=== PATIENT | female | born 1965 ===

== ENCOUNTER 2025-06-08 10:17 | Outpatient (AMB) | payer BC, SELFPAY ==
[2025-06-08 10:26] VITALS: BMI 24.1
--- NOTE | 2025-06-08 10:26 | A.SPINEOV_ITS ---
Vital Signs 06/08/25 10:26 Height 5 ft 2 in Weight 132 lb BMI 24.1 Intake Visit Reasons: low back pain Intake Note: Ms. Ro is here today c/o low back pain that radiates to the groin. Portable Machine Sander Required: No Allergies Sulfa (Sulfonamide Antibiotics) Allergy (Severe, Verified 06/08/25 10:27) Rash Physical Exam Vital Signs: BMI result Body Mass Index 24.1 Assessment & Plan Assessment & Plan (1) Lumbar disc herniation: Code(s): M51.26 - Other intervertebral disc displacement, lumbar region Category: Medical Plan Dear Dr Jones, Thank you for referring Mrs Ro to our office today. She is a very nice 59-year-old female with previous history of an L4-5 laminectomy/diskectomy done by Dr. Muñoz in 2013. She did not have a good experience after that procedure, the recovery was extensive and she was laid up for quite awhile. She was doing well until about 6 or 7 months ago when she experienced abrupt onset of left leg pain shooting down into her left lateral leg into her left calf. She has also more recently started having left-sided groin pain. This is superi mposed on chronic back pain. She underwent physical therapy, medication trials including cyclobenzaprine, methocarbamol, Motrin. She also underwent an injection at your office which did help her for a little bit but it was not lasting very long. She comes to us today with an MRI showing a recurrent herniated disc on the left at L4-5 amongst other degenerative changes. PMH: Otherwise healthy, she has a history of resting tremor and back surgery but denies any history of cardiopulmonary disease, liver or kidney problems, bleeding disorders, blood clots, major abdominal surgery, cancer or infections. Social hx: She has not smoke, drink use any recreational drugs Medications: Ibuprofen, methocarbamol, cyclobenzaprine Allergies: Sulfa Physical exam: Awake alert oriented, walks with an antalgic gait, she has some mild weakness of her left ankle which I would rate as 4-5 with lateral eversion. Dorsiflexion is full strength. Reflexes are intact. Positive straight leg raise at 20 degrees. Imaging review: Lumbar MRI done at [facility] in December 2024 shows postsurgical changes at L4-5, she has a large recurrent herniated disc on the left side. Impression: 59-year-old female with a previous history of L4-5 surgery, sounds like she had a diskectomy done with Dr. Muñoz at [facility] in 2013. She had a very difficult time with recovery from that surgery, but ultimately did okay until about 6 or 7 months ago when she reherniated her disc at L4-5 on the left side. She has done conservative management and at this point the pain is getting too intense and persistent that is affecting her quality of life. Dr. Walden and I met with her and offered her a redo left L4-5 microdiskectomy. We scheduled her for 07/26/2025. The patient was given risk and benefits of surgery including but not limited to infection, hematoma, nerve injury, durotomy, weakness, bowel/bladder injury, persistent pain,[ ]. We also discussed the option to continue with conservative treatment and patient wishes to proceed with surgery. They are aware they should stop NSAIDs 7 days prior to surgery. All questions were answered to the best of our ability. If there is anything about this patients medical history that we have overlooked or concerns you have about us proceeding with surgery we would appreciate any input you can offer Thank you for allowing us to care for your patient. The total time spent with this visit with this patient was 45 minutes reviewing history, physical exam, lumbar imaging review, and implementation of treatment plan or further diagnostic testing Lizandro Walden MD,PhD [facility] Coding Level of Care Code New Pt Level 4 (67544) Diagnoses Lumbar disc herniation M51.26
--- OUTSIDE RECORDS SUMMARY | 2025-06-08 11:08 | XMS_ITS | Encounter Summary ---
Author Organization [facility] Address [address] [place] [address] Phone Care Team Providers Care Change Agent Name Role Phone Sancho Duran MD Primary Care Provider Encounter Details Date Type Department Care Team (Late st Contact Info) Description 11/15/2018 Procedure [facility] [address] [place] [address] Social History Tobacco Use Types Packs/Day Years Used Date Smoking Tobacco: Never Assessed Comments Unknown Sex and Gender Information Value Date Recorded Sex Assigned at Not on file Legal Sex Female 5:12 PM EST Gender Identity Not on file Sexual Orientation Not on file documented as of this encounter Functional Status documented as of this encounter Plan of Treatment Not on file documented as of this encounter Visit Diagnoses Not on filedocumented in this encounter Care Teams Change Agent Relationship Specialty Start Date End Date Sancho Duran MD [address] [place] [phone] PCP - General Family Medicine 10/28/18 documented as of this encounter Additional Source Comments The information contained in this document represents components of the legal health record. It is not the complete legal health record.[facility]
--- OUTSIDE RECORDS SUMMARY | 2025-06-08 11:08 | XMS_ITS | Clinical Summary ---
Author Organization [facility] Address [address] [place] [address] Phone Care Team Providers Care Supervisor Polishing Name Role Phone Sancho Duran MD Primary Care Provider Allergies Active Allergy Reactions Criticality Noted Date Comments Sulfa (Sulfonamide Antibiotics) 11/04 Rash Medications propranolol (INDERAL) 80 MG immediate release tablet Take 80 mg by mouth daily. Active cyclobenzaprine (FLEXERIL) 10 MG tabletIndicatio ns:prn Take 10 mg by mouth 3 (three) times a day as needed for muscle spasms. Indications: prn Active cholecalciferol (VITAMIN D3) 5,000 unit tablet Take 1,000 Units by mouth daily. Active calcium carbonate (CALCIUM 600 ORAL)Indication s:sometimes take 2 tab Take by mouth. Indications: sometimes take 2 tab Active ibuprofen (ADVIL,MOTRIN) 600 MG tabletIndicatio ns:prn Take 600 mg by mouth every 6 (six) hours as needed for pain (specific location in comments). Indications: prn Active naproxen sodium (ALEVE) 220 MG tablet Take 220 mg by mouth 2 (two) times a day with meals. Active Active Problems Problem Noted Date Diagnosed Date Lumbar radiculopathy 11/29/2018 Social History Tobacco Use Types Packs/Day Years Used Date Smoking Tobacco: Never Smokeless Tobacco: Never Alcohol Use Standard Drinks/Week Comments Never 0 (1 standard drink = 0.6 oz pur e alcohol) Education Answer Date Recorded Are you interested in more education? Not on jenifer e 01/03/2023 Are you concerned about learning? Not on file 01/03/2023 No 01/03/2023 No 01/03/2023 Digital Access Answer Date Recorded No 01/26/2023 No 01/26/2023 No 01/26/2023 Reliable internet access at home? Not on file 01/26/2023 Device with a working camera? Not on file Comments Unknown Sex and Gender Information Value Date Recorded Sex Assigned at Not on file Legal Sex Female 5:12 PM EST Gender Identity Not on file Sexual Orientation Not on file Last Filed Vital Signs Vital Sign Reading Time Taken Comments Blood Pressure 107/75 01/16/2019 10:42 AM EDT Pulse 81 01/16/2019 10:42 AM EDT Temperature - - Respiratory Rate - - Oxygen Saturation 99% 01/16/2019 10:42 AM EDT Inhaled Oxygen Concentration - - Weight 58.5 kg (129 lb) 11/15/2018 12:41 PM EDT verbal Height 157.5 cm (5' 2 ) 11/15/2018 12:41 PM EDT verbal Body Mass Index 23.59 11/15/2018 12:41 PM EDT Plan of Treatment Health Maintenance Due Date Last Done Comments Adult Td,Tdap Booster 1964 LIPID PANEL 1964 DEPRESSION SCREENING 1976 HEPATITIS C SCREENING 1982 HIV ONE-TIME SCREENING (18-6 5 YEARS) 1982 PAP SMEAR 1985 MAMMOGRAM 2004 COLOGUARD 2009 COLONOSCOPY 2009 COLORECTAL CANCER SCREENING 2009 FIT TEST 2009 FOBT 2009 SIGMOIDOSCOPY 2009 VIRTUAL COLONOSCOPY 2009 PNEUMOCOCCAL VACCINES (50+ years) (1 of 1 - PCV) 2014 ZOSTER VACCINES (1 of 2) 2014 INFLUENZA VACCINE (#1) 2025 7, 05/26/2016 COVID-19 VACCINE (2 - 2024-2 6 season) 2025 12/06/2020 RSV VACCINE (1 - 1-dose 75+ series) 2039 SMOKING STATUS SCREENING (On ce After 26 Yrs) Completed 01/16/2019 HEPATITIS A VACCINES Aged Out No long er eligible based on patient's age to complete this topic HIB VACCINES Aged Out No longer eligi ble based on patient's age to complete this topic MENINGOCOCCAL VACCINES (ACWY) Aged Out No longer eligible based on patient's age to complete this topic MENINGOCOCCAL VACCINES (B) Aged Out N o longer eligible based on patient's age to complete this topic Medical Devices Not on file Insurance POS POS POS POS POS POS POS POS POS Care Teams Supervisor Polishing Relationship Specialty Start Date End Date Sancho Duran MD [address] [place] [phone] PCP - General Family Medicine 10/28/18 Additional Source Comments The information contained in this document represents components of the legal health record. It is not the complete legal health record.[facility]
--- OUTSIDE RECORDS SUMMARY | 2025-06-08 11:08 | XMS_ITS | Encounter Summary ---
Author Organization [facility] Address [address] [place] [address] Phone Care Team Providers Care Brick Chimney Builder Name Role Phone Sancho Duran MD Primary Care Provider Encounter Details Date Type Department Care Team (Late st Contact Info) Description 12/15/2018 Ancillary Orders Pain Management Services [address] [place] [address] Ambrosio Diaz MD [address] [place] [address] [email or web address] Pain Social History Tobacco Use Types Packs/Day Years Used Date Smoking Tobacco: Never Smokeless Tobacco: Never Alcohol Use Standard Drinks/Week Comments Never 0 (1 standard drink = 0.6 oz pur e alcohol) Comments Unknown Sex and Gender Information Value Date Recorded Sex Assigned at Not on file Legal Sex Female 5:12 PM EST Gender Identity Not on file Sexual Orientation Not on file documented as of this encounter Plan of Treatment Not on file documented as of this encounter Results * [place] Pain [facility] (12/15/2018 11:39 AM EDT) Narrative [facility] INTERFACES - 12/15/2018 11:39 AM EDT Fluoroscopy was provided during this procedure. us Ambrosio Diaz MD IMG [place] EXAMS Final Result [facility] documented in this encounter Visit Diagnoses Diagnosis Pain Generalized pain Pain Generalized pain documented in this encounter Care Teams Brick Chimney Builder Relationship Specialty Start Date End Date Sancho Duran MD [address] [place] [phone] PCP - General Family Medicine 10/28/18 documented as of this encounter Additional Source Comments The information contained in this document represents components of the legal health record. It is not the complete legal health record.[facility]
--- OUTSIDE RECORDS SUMMARY | 2025-06-08 11:08 | XMS_ITS | Encounter Summary ---
Author Organization [facility] Address [address] [place] [address] Phone Care Team Providers Care Forest Logistics Manager Name Role Phone Sancho Duran MD Primary Care Provider Encounter Details Date Type Department Care Team (Late st Contact Info) Description 11/15/2018 Procedure [facility] Imaging [address] [place] [address] Social History Tobacco Use Types Packs/Day Years [...] on filedocumented in this encounter Care Teams Forest Logistics Manager Relationship Specialty Start Date End Date Sancho Duran MD [address] [place] [phone] PCP - General Family Medicine 10/28/18 documented as of this encounter Additional Source Comments The information contained in this document represents components of the legal health record. It is not the complete legal health record.[facility]
--- OUTSIDE RECORDS SUMMARY | 2025-06-08 11:08 | XMS_ITS | Encounter Summary ---
Author Organization [facility] Address [address] [place] [address] Care Team Providers Care Pet Handler Name Role Phone Mikala Brower CORRUGATOR MACHINE OPERATOR Primary Care Provider Encounter Details Date Type Department Care Team (Late st Contact Info) Description 05/29/2024 Orders Only [facility] Lab [address] [place] [address] Mikala Brower, CORRUGATOR MACHINE OPERATOR [address] [facility] [address] [place] [phone] Hyperlipidemia, unspecified hyperlipidemia type (Primary Dx); Iron deficiency anemia, unspecified iron deficiency anemia type; Vitamin D deficiency Social History Tobacco Use Types Packs/Day Years Used Date Smoking Tobacco: Never Smokeless Tobacco: Never Alcohol Use Standard Drinks/Week Comments Not Currently 0 (1 standard drink = 0.6 oz pur e alcohol) Comments No Sex and Gender Information Value Date Recorded Sex Assigned at Female 10/14/2023 3:15 PM EST Legal Sex Female 4:38 AM EDT Gender Identity Not on file Sexual Orientation Not on file documented as of this encounter Plan of Treatment Upcoming Encounters Date Type Department Care Team (Late st Contact Info) Description 03/29/2026 12:00 PM EDT Appointment [facility] Ultrasound [address] [place] [address] 04/12/2026 1:30 PM EDT Follow-Up [facility] [address] [place] [phone] Last Putter Away: Francesca Dubon PA [address] [place] [address] documented as of this encounter Results * Due to [place] state law, this organization might not be sharing negative HIV tests. * Vitamin D, 25-Hydroxy, Total, Immunoassay (06/02/2024 11:21 AM EDT) Vitamin D 25-OH 55.80 30.00 - 80.00 ng/mL 06/05/2024 4:36 PM EDT [facility] Blood Structure of peripheral vein / Unknown Venipuncture / Unknown 06/02/2024 11:21 AM EDT 06/02/2024 11:21 AM EDT us Mikala Brower NP LAB BLOOD ORDERABLES Final Res ult Performing Organization Address City/[facility]/ZIP Co de Phone Number [facility] [address] [place] [address], [place] [phone] * Vitamin B12 (06/02/2024 11:21 AM EDT) Pathologist [facility] Vitamin B12 269 232 - 1,245 pg/mL 06/02/2024 2:47 PM EDT [facility] Blood Structure of peripheral vein / Unknown Venipuncture / Unknown 06/02/2024 11:21 AM EDT 06/02/2024 11:21 AM EDT Mikala Brower CORRUGATOR MACHINE OPERATOR LAB BLOOD ORDERABLES Final Res ult [facility] [address] [address], [place] [phone] * (ABNORMAL) CBC Auto Differential (06/02/2024 11:21 AM EDT) WBC 5.8 4.8 - 10.8 10*3/uL 06/02/2024 2:24 PM EDT [facility] RBC 4.69 4.20 - 5.40 10*6/uL 06/02/2024 2:24 PM EDT [facility] Hemoglobin 13.0 11.7 - 15.5 g/dL 06/02/2024 2:24 PM EDT [facility] Hematocrit 39.1 35.7 - 45.8 % 06/02/2024 2:24 PM EDT [facility] MCV 83.4 81.0 - 99.0 fL 06/02/2024 2:24 PM EDT [facility] MCH 27.7 26.0 - 34.0 pg 06/02/2024 2:24 PM EDT [facility] MCHC 33.2 31.0 - 36.0 g/dL 06/02/2024 2:24 PM EDT [facility] RDW 12.8 12.0 - 15.0 % 06/02/2024 2:24 PM EDT [facility] RDW Standard Deviation 38.7 36.4 - 46.3 fL 06/02/2024 2:24 PM EDT [facility] Platelets 231 140 - 440 10*3/uL 06/02/2024 2:24 PM EDT [facility] MPV 11.4 9.4 - 12.3 fL 06/02/2024 2:24 PM EDT [facility] Neutrophil % 47.8(L) 50.0 - 75.0 % 06/02/2024 2:24 PM EDT [facility] Immature Grans % 0.2 0.0 - 0.9 % 06/02/2024 2:24 PM EDT [facility] Lymphocyte % 41.4 20.0 - 44.0 % 06/02/2024 2:24 PM EDT [facility] Monocyte % 8.3 0.0 - 14.0 % 06/02/2024 2:24 PM EDT [facility] Eosinophil % 1.4 0.0 - 5.0 % 06/02/2024 2:24 PM EDT [facility] Basophil % 0.9 0.0 - 2.0 % 06/02/2024 2:24 PM EDT [facility] Neutrophil # 2.76 1.80 - 7.70 10*3/uL 06/02/2024 2:24 PM EDT [facility] Immature Grans # <0.03 0.00 - 0.03 10*3/uL 06/02/2024 2:24 PM EDT [facility] Lymphocyte # 2.40 1.00 - 4.75 10*3/uL 06/02/2024 2:24 PM EDT [facility] Monocyte # 0.50 0.00 - 6.00 10*3/uL 06/02/2024 2:24 PM EDT [facility] Eosinophil # 0.10 0.00 - 0.80 10*3/uL 06/02/2024 2:24 PM EDT [facility] Basophil # 0.10 0.00 - 0.20 10*3/uL 06/02/2024 2:24 PM EDT [facility] nRBC % 0.0 0 - 0 /100 WBCs 06/02/2024 2:24 PM EDT [facility] nRBC # <0.01 0.00 - 0.13 10*3/uL 06/02/2024 2:24 PM EDT [facility] Blood Structure of peripheral vein / Unknown Venipuncture / Unknown 06/02/2024 11:21 AM EDT 06/02/2024 11:21 AM EDT us Mikala Brower NP LAB BLOOD ORDERABLES Final Res ult [facility] [address] [place] [address], * Comprehensive Metabolic Panel (06/02/2024 11:21 AM EDT) NA 143 136 - 145 mmol/L 06/02/2024 2:47 PM EDT [facility] K 4.6 3.5 - 5.1 mmol/L 06/02/2024 2:47 PM EDT [facility] Cl 108 98 - 109 mmol/L 06/02/2024 2:47 PM EDT [facility] CO2 24 22 - 32 mmol/L 06/02/2024 2:47 PM EDT [facility] Anion Gap 16 >=0 06/02/2024 2:47 PM EDT [facility] Glucose 96 60 - 99 mg/dL 06/02/2024 2:47 PM EDT [facility] Creatinine 0.71 0.50 - 1.12 mg/dL 06/02/2024 2:47 PM EDT [facility] Calcium 9.6 8.4 - 10.4 mg/dL 06/02/2024 2:47 PM EDT [facility] Total Protein 7.1 6.6 - 8.7 g/dL 06/02/2024 2:47 PM EDT [facility] Albumin 4.3 3.5 - 5.0 g/dL 06/02/2024 2:47 PM EDT [facility] Bilirubin, Total 0.3 0.2 - 1.2 mg/dL 06/02/2024 2:47 PM EDT [facility] Alkaline Phosphatase 62 40 - 129 U/L 06/02/2024 2:47 PM EDT [facility] AST 24 0 - 33 U/L 06/02/2024 2:47 PM EDT [facility] ALT 31 <=33 U/L 06/02/2024 2:47 PM EDT [facility] BUN 14 6 - 20 mg/dL 06/02/2024 2:47 PM EDT [facility] eGFR >90 >=60 mL/min/1. 73m2 06/02/2024 2:47 PM EDT [facility] Comment:The estimated glomer ular filtration rate (eGFR) is calculated using a new formula developed by the NKF-ASN task force to eliminate race-based correction factors. The new formula uses serum/plasma creatinine, age, and gender to determine eGFR. A value below 60mls/min might indicate kidney disease and will be flagged. For additional information, see Juan et al, Am J Kidney Dis. 2021;79(2):268- 288, A Unifying Approach for GFR estimation: Recommendations of the NKF-ASN Task Force on Reassessing the Inclusion of Race in Diagnosing Kidney Disease . Globulin, Total 2.8 2.1 - 4.2 g/dL 06/02/2024 2:47 PM EDT [facility] A/G Ratio 1.5 1.5 - 3.0 06/02/2024 2:47 PM EDT [facility] Blood Structure of peripheral vein / Unknown Venipuncture / Unknown 06/02/2024 11:21 AM EDT 06/02/2024 11:21 AM EDT us Mikala Brower CORRUGATOR MACHINE OPERATOR LAB BLOOD ORDERABLES Final Res ult Performing Organization Address City/State/[facility] Co de Phone Number [facility] [address] [place] [phone], * Lipid panel (06/02/2024 11:21 AM EDT) Cholesterol 232 mg/dL 06/02/2024 2:47 PM EDT [facility] Comment: DESIRABLE: <200 mg/dL BORDERLINE HIGH: 200-239 mg/dL HIGH: >239 mg/dL Triglycerides 194 mg/dL 06/02/2024 2:47 PM EDT [facility] Comment: NORMAL: <150 mg/dL BORDERLINE HIGH: 150-199 mg/dL HIGH: 200-499 mg/dL VERY HIGH >499 mg/dL Cholesterol, HDL 48 mg/dL 06/02/20 2:47 PM EDT [facility] Comment: DESIRABLE: >60 mg/dL BORDERLINE: 40-59 mg/dL UNDESIRABLE: <40 mg/dL LDL Cholesterol 145 mg/dL 2:47 PM EDT [facility] Comment: OPTIMAL: <100 mg/dL NEAR OPTIMAL: <130 mg/dL BORDERLINE HIGH: 130-159 mg/dL HIGH: 160-189 mg/dL VERY HIGH: >189 mg/dL VLDL 38.8 mg/dL 06/02/2024 2:47 PM EDT [facility] Cholesterol/HDL Ratio 4.8 06/02/2024 2:47 PM EDT [facility] Blood Structure of peripheral vein / Unknown Venipuncture / Unknown 06/02/2024 11:21 AM EDT 06/02/2024 11:21 AM EDT us Mikala Brower CORRUGATOR MACHINE OPERATOR LAB BLOOD ORDERABLES Final Res ult [facility] [address] [place] [address], documented in this encounter Visit Diagnoses Diagnosis Hyperlipidemia, unspecified hyperlipidemia type- Primary Iron deficiency anemia, unspecified iron deficiency anemia type Vitamin D deficiency documented in this encounter Care Teams Pet Handler Relationship Specialty Start Date End Date Mikala Brower NP [address] [place] [phone] PCP - General Family Medicine 05/04/24 documented as of this encounter
--- OUTSIDE RECORDS SUMMARY | 2025-06-08 11:09 | XMS_ITS | Encounter Summary ---
Author Organization [facility] Address [address] [place] [address] Care Team Providers Care Off Track Betting Manager Name Role Phone Sancho Duran Kassidy Primary Care Provider [phone] Encounter Details Date Type Department Care Team ([facility] st Contact Info) Description 09/11/2022 Orders Only [facility] Urology [address] [facility] [address] [place] [address] Rossana Mendez, JUAN ANTONIO [address] [place] [address] Social History Tobacco Use Types Packs/Day Years Used Date Smoking Tobacco: Never Smokeless Tobacco: Never Comments Unknown Sex and Gender Information Value Date Recorded Sex Assigned at Not on file Legal Sex Female 8:08 PM EDT Gender Identity Not on file Sexual Orientation Not on file documented as of this encounter Plan of Treatment Not on file documented as of this encounter Procedures * Due to [place] careers[employer] law, this organization might not be sharing negative HIV tests. Procedure Name Priority Date/Time Associated Diagnosis Comments CULTURE, URINE, ROUTINE Routine 09/11/2022 1:54 PM EST Suprapubic pressure Kidney stone URINALYSIS, MICROSCOPIC Routine 09/11/2022 1:54 PM EST Suprapubic pressure Kidney stone documented in this encounter Results * Due to [place] [employer] law, this organization might not be sharing negative HIV tests. * (ABNORMAL) CULTURE, URINE, ROUTINE (09/11/2022 1:54 PM EST) Bacteria culture (Urine) SEE NOTE(A) [facility] Comment: CULTURE, URINE, ROUTINE Micro Number: [id number] Test Status: Final Specimen Source: Urine Specimen Quality: Adequate Result: 10,000-49,000 CFU/mL of Group B Streptococcus isolated Beta-hemolytic streptococci are predictably susceptible to Penicillin and other beta-lactams. Susceptibility testing not routinely performed. Please contact the laboratory within 3 days if susceptibility testing is desired. Comment: Erythromycin and clindamycin are not recommended for treatment of urinary tract infections, but clindamycin may be useful for treatment of rectovaginal colonization or infection. COMMENT: Additional non-predominating organism(s) isolated. These organisms, commonly found on external and internal genitalia, are considered colonizers. No further testing performed. 09/11/2022 1:54 PM EST 09/12/2022 12:05 AM EST Narrative Resulting Agency Comment [id number] Rossana Mendez NP LABORATORY Final Re sult Performing Organization Address [facility] Co de Phone Number [facility] [address] [place] [address] * URINALYSIS, MICROSCOPIC (09/11/2022 1:54 PM EST) WBC (Urine) NONE SEEN < OR = 5 /HPF [facility] RBC (Urine Sed) NONE SEEN < OR = 2 /HPF [facility] Epithelial cells.squamous (Urine sed) NONE SEEN < OR = 5 /HPF [facility] Bacteria (Urine) NONE SEEN NONE SEEN /HPF [facility] Hyaline casts (Urine sed) NONE SEEN NONE SEEN /LPF [facility] Service comment 01 See Below [facility] Comment: This urine was analyzed for the presence of WBC, RBC, bacteria, casts, and other formed elements. Only those elements seen were reported. 09/11/2022 1:54 PM EST 09/12/2022 12:05 AM EST Narrative Resulting Agency Comment [id number] Rossana Mendez NP LAB SAME DAY RESULT [place] l Result Performing Organization Address [facility] Co de Phone Number [facility] [address] [place] [address] documented in this encounter Visit Diagnoses Diagnosis Suprapubic pressure Abdominal pain, other specified site Kidney stone Calculus of kidney documented in this encounter Care Teams Off Track Betting Manager Relationship Specialty Start Date End Date Sancho Duran [address] [place] [phone] PCP - General Family Medicine 03/13/22 documented as of this encounter
--- OUTSIDE RECORDS SUMMARY | 2025-06-08 11:09 | XMS_ITS | Encounter Summary ---
Author Organization [facility] Address [address] [place] [address] Care Team Providers Care Hand Knitter Name Role Phone Mikala Brower NP Primary Care Provider Encounter Details Date Type Department Care Team (Late st Contact Info) Description 05/14/2025 Orders Only [facility] Site Department [address] [place] [address] Joe Park NP [address] [address] Social History Tobacco Use Types Packs/Day Years [...] Info) Description 03/29/2026 12:00 PM EDT Appointment [facility] Ultrasound [address] [place] [address] 04/12/2026 1:30 PM EDT Follow-Up [facility] [address] [place] [address] Canvass Manager: Francesca Dubon PA [address] [place] [address] documented as of this encounter Visit Diagnoses Not on filedocumented in this encounter Care Teams Hand Knitter Relationship Specialty Start Date End Date Mikala Brower NP [address] [facility] [address] [place] [address] PCP - General Family Medicine 05/04/24 documented as of this encounter
--- OUTSIDE RECORDS SUMMARY | 2025-06-08 11:09 | XMS_ITS | Encounter Summary ---
Author Organization [facility] Address [address] [place] [address] Care Team Providers Care Steel Barrel Reamer Name Role Phone Sancho Duran Primary Care Provider [phone] Encounter Details Date Type Department Care Team (Late st Contact Info) Description 09/16/2022 Telephone CALL CENTER [facility] [address] [place] [address] Rossana Mendez, REAL ESTATE CLOSING COORDINATOR [address] [place] [address] Social History Tobacco Use Types Packs/Day Years Used Date Smoking Tobacco: Never Smokeless Tobacco: Never Comments Unknown Sex and Gender Information Value Date Recorded Sex Assigned at Not on file Legal Sex Female 8:08 PM EDT Gender Identity Not on file Sexual Orientation Not on file documented as of this encounter Miscellaneous Notes * Telephone Encounter - Phil Boland - 09/16/2022 1:25 PM EST 09/16/22 Pt Declined to schedule US We will remove the order on 10/31/2022 Thank you [facility] Radiology documented in this encounter Plan of Treatment Not on file documented as of this encounter Visit Diagnoses Not on filedocumented in this encounter Care Teams Steel Barrel Reamer Relationship Specialty Start Date End Date Sancho Duran [address] [place] [address] PCP - General Family Medicine 03/13/22 documented as of this encounter
--- OUTSIDE RECORDS SUMMARY | 2025-06-08 11:09 | XMS_ITS | Encounter Summary ---
Author Organization [facility] Address [address] [place] [address] Care Team Providers Care Joint Yarner Name Role Phone DuranSancho fuller Kassidy Primary Care Provider [phone] Reason for Visit * Reason Comments Unable To Schedule The patient has decl ined the scheduling for US RETROPER,LIMITED - RENAL - BILAT FC. The hung up on me when I said [facility] name. Encounter Details Date Type Department Care Team ([facility] Contact Info) Description 01/26/2023 Telephone CALL CENTER [address] [address] Rossana Mendez, JUAN ANTONIO [address] [place] [address] Unable To Schedule (The patient has declined the scheduling for US RETROPER,LIMITED - RENAL - BILAT FC. The hung up on me when I said [facility] name.) Social History Tobacco Use Types Packs/Day Years Used Date Smoking Tobacco: Never Smokeless Tobacco: Never Comments Unknown Sex and Gender Information Value Date Recorded Sex Assigned at Not on file Legal Sex Female 8:08 PM EDT Gender Identity Not on file Sexual Orientation Not on file documented as of this encounter Miscellaneous Notes * Telephone Encounter - Fahad Park - 01/26/2023 6:50 PM EDT There was an attempt to schedule the appointment. The patient has declined the scheduling for US RETROPER,LIMITED - RENAL - BILAT FC the order will be pull from [facility] 03/11/2023. The hung up on me when I said [facility] name. Thank You Radiology Scheduling Dept documented in this encounter Plan of Treatment Not on file documented as of this encounter Visit Diagnoses Not on filedocumented in this encounter Care Teams Joint Yarner Relationship Specialty Start Date End Date Sancho Duran [address] [place] [phone] PCP - General Family Medicine 03/13/22 documented as of this encounter
--- OUTSIDE RECORDS SUMMARY | 2025-06-08 11:09 | XMS_ITS | Encounter Summary ---
Author Organization [facility] Address [address] [place] [address] Care Team Providers Care Needlemaker Name Role Phone Mikala Brower [employer] Primary Care Provider Encounter Details Date Type Department Care Team (Late st Contact Info) Description 03/13/2025 Orders Only [facility] Site Department [address] [place] [address] Mikala Brower, JUAN ANTONIO [address] [address] Health maintenance examination (Primary Dx) Social History Tobacco Use Types Packs/Day Years [...] Info) Description 03/29/2026 12:00 PM EDT Appointment [facility] Ultrasound [address] [place] [address] 04/12/2026 1:30 PM EDT Follow-Up [facility]rology Clinic [address] [place] [address] Nick Setter: Francesca Dubon, PA [address] [place] [address] documented as of this encounter Results * Due to [place] state law, this organization might not be sharing negative HIV tests. * Vitamin D, 25-Hydroxy, Total, Immunoassay (03/15/2025 10:28 AM EDT) Vitamin D 25-OH 45.60 30.00 - 80.00 ng/mL 03/15/2025 1:35 PM EDT [facility] Blood Structure of peripheral vein / Unknown Venipuncture / Unknown 03/15/2025 10:28 AM EDT 03/15/2025 10:28 AM EDT us Mikala Brower NP LAB BLOOD ORDERABLES Final Res ult [facility] [address] [place] [address], * (ABNORMAL) Comprehensive Metabolic Panel (03/15/2025 10:28 AM EDT) NA 141 136 - 145 mmol/L 03/15/2025 1:23 PM EDT [facility] K 4.3 3.5 - 5.1 mmol/L 03/15/2025 1:23 PM EDT [facility] Cl 106 98 - 109 mmol/L 03/15/2025 1:23 PM EDT [facility] CO2 24 22 - 32 mmol/L 03/15/2025 1:23 PM EDT [facility] Anion Gap 15 >=0 03/15/2025 1:23 PM EDT [facility] Glucose 102(H) 60 - 99 mg/dL 03/15/2025 1:23 PM EDT [facility] Creatinine 0.67 0.50 - 1.12 mg/dL 03/15/2025 1:23 PM EDT [facility] Calcium 9.8 8.4 - 10.4 mg/dL 03/15/2025 1:23 PM EDT [facility] Total Protein 7.4 6.6 - 8.7 g/dL 03/15/2025 1:23 PM EDT [facility] Albumin 4.3 3.5 - 5.0 g/dL 03/15/2025 1:23 PM EDT [facility] Bilirubin, Total 0.5 0.2 - 1.2 mg/dL 03/15/2025 1:23 PM EDT [facility] Alkaline Phosphatase 51 40 - 129 U/L 03/15/2025 1:23 PM EDT [facility] AST 24 0 - 33 U/L 03/15/2025 1:23 PM EDT [facility] ALT 19 <=33 U/L 03/15/2025 1:23 PM EDT [facility] BUN 11 8 - 23 mg/dL 03/15/2025 1:23 PM EDT [facility] eGFR >90 >=60 mL/min/1. 73m2 03/15/2025 1:23 PM T [facility] Comment:The estimated glomer ular filtration rate (eGFR) is calculated using a new formula developed by the NKF-ASN task force to eliminate race-based correction factors. The new formula uses serum/plasma creatinine, age, and gender to determine eGFR. A value below 60mls/min might indicate kidney disease and will be flagged. For additional information, see Martinez et al, Am J Kidney Dis. 2021;79(2):268- 288, A Unifying Approach for GFR estimation: Recommendations of the NKF-ASN Task Force on Reassessing the Inclusion of Race in Diagnosing Kidney Disease . Globulin, Total 3.1 2.1 - 4.2 g/dL 03/15/2025 1:23 PM EDT [facility] A/G Ratio 1.4(L) 1.5 - 3.0 03/15/2025 1:23 PM T [facility] Blood Structure of peripheral vein / Unknown Venipuncture / Unknown 03/15/2025 10:28 AM EDT 03/15/2025 10:28 AM EDT us Mikala Brower [employer] LAB BLOOD ORDERABLES Final Res ult Performing Organization Address [facility] Co de Phone Number [facility] [address] [address], [place] [phone] * (ABNORMAL) Hemoglobin A1c (03/15/2025 10:28 AM EDT) Hemoglobin A1c 5.8(H) 4.0 - 5.7 % 03/15/2025 1:21 PM EDT [facility] Estimated Average Glucose 120 mg/dL 03/15/2025 1:21 PM EDT [facility] Blood Structure of peripheral vein / Unknown Venipuncture / Unknown 03/15/2025 10:28 AM EDT 03/15/2025 10:28 AM EDT us Mikala Brower [employer] LAB BLOOD ORDERABLES Final Res ult Performing Organization Address [facility] Co de Phone Number [facility] [address] [address], [place] [phone] * Lipid panel (03/15/2025 10:28 AM EDT) Cholesterol 197 mg/dL 03/15/2025 1:23 PM EDT [facility] Comment: DESIRABLE: <200 mg/dL BORDERLINE HIGH: 200-239 mg/dL HIGH: >239 mg/dL Triglycerides 128 mg/dL 03/15/2025 1:23 PM EDT [facility] Comment: NORMAL: <150 mg/dL BORDERLINE HIGH: 150-199 mg/dL HIGH: 200-499 mg/dL VERY HIGH >499 mg/dL Cholesterol, HDL 48 mg/dL 03/15/20 1:23 PM EDT [facility] Comment: DESIRABLE: >60 mg/dL BORDERLINE: 40-59 mg/dL UNDESIRABLE: <40 mg/dL LDL Cholesterol 123 mg/dL 1:23 PM EDT [facility] Comment: OPTIMAL: <100 mg/dL NEAR OPTIMAL: <130 mg/dL BORDERLINE HIGH: 130-159 mg/dL HIGH: 160-189 mg/dL VERY HIGH: >189 mg/dL VLDL 25.6 mg/dL 03/15/2025 1:23 PM EDT [facility] Cholesterol/HDL Ratio 4.1 03/15/2025 1:23 PM EDT [facility] Blood Structure of peripheral vein / Unknown Venipuncture / Unknown 03/15/2025 10:28 AM EDT 03/15/2025 10:28 AM EDT us Mikala Brower NP LAB BLOOD ORDERABLES Final Res ult [facility] [address] [facility] [address] [place] [address], [place] [phone] * T4, Free (03/15/2025 10:28 AM EDT) Free T4 1.30 0.80 - 1.80 ng/dL 03/15/2025 1:23 PM EDT [facility] Comment: Females: (ng/dL) First Trimester 0.95-1.58 ng/dL Second Trimester 0.76-1.24 ng/dL Third Trimester 0.70-1.25 ng/dL Dietary supplements containing biotin may interfere in assays and may skew analyte results to be falsely high. For patients receiving the recommended daily doses of biotin, draw samples at least 8 hours following the last biotin supplementation. For patients on kathe-doses of biotin supplements, draw samples at least 72 hours following the last biotin supplementation. Effective 2024, Free T4 reference range (>=18 years old) is 0.8 - 1.8 ng/dL, replacing the previous range of 0.93 - 1.70 ng/dL. Blood Structure of peripheral vein / Unknown Venipuncture / Unknown 03/15/2025 10:28 AM EDT 03/15/2025 10:28 AM EDT us Mikala Brower NP LAB BLOOD ORDERABLES Final Res ult Performing Organization Address City/[facility] Co de Phone Number [facility] [address] [address], [place] [phone] * TSH (03/15/2025 10:28 AM EDT) Pathologist [facility] TSH 2.260 0.270 - 4.200 uIU/mL 03/15/2025 1:23 PM EDT [facility] Comment: Females: 1st trimester 0.150-4.000 IU/mL 2nd trimester 0.310-4.170 IU/mL 3rd trimester 0.380-4.150 IU/mL Blood Structure of peripheral vein / Unknown Venipuncture / Unknown 03/15/2025 10:28 AM EDT 03/15/2025 10:28 AM EDT Mikala Brower [employer] LAB BLOOD ORDERABLES Final Res ult Performing Organization Address [facility] Co de Phone Number [facility] [address] [address], [place] [phone] * (ABNORMAL) CBC Auto Differential (03/15/2025 10:28 AM EDT) [facility] WBC 7.3 4.8 - 10.8 10*3/uL 03/15/2025 12:51 PM EDT [facility] RBC 4.67 4.20 - 5.40 10*6/uL 03/15/2025 12:51 PM EDT [facility] Hemoglobin 13.1 11.7 - 15.5 g/dL 03/15/2025 12:51 PM EDT [facility] Hematocrit 39.2 35.7 - 45.8 % 03/15/2025 12:51 PM EDT [facility] MCV 83.9 81.0 - 99.0 fL 03/15/2025 12:51 PM EDT [facility] MCH 28.1 26.0 - 34.0 pg 03/15/2025 12:51 PM EDT [facility] MCHC 33.4 31.0 - 36.0 g/dL 03/15/2025 12:51 PM EDT [facility] RDW 12.6 12.0 - 15.0 % 03/15/2025 12:51 PM EDT [facility] RDW Standard Deviation 38.5 36.4 - 46.3 fL 03/15/2025 12:51 PM EDT [facility] Platelets 220 140 - 440 10*3/uL 03/15/2025 12:51 PM EDT [facility] MPV 11.6 9.4 - 12.3 fL 03/15/2025 12:51 PM EDT [facility] Neutrophil % 53.0 50.0 - 75.0 % 03/15/2025 12:51 PM EDT [facility] Immature Grans % 0.1 0.0 - 0.9 % 03/15/2025 12:51 PM EDT [facility] Lymphocyte % 34.7 20.0 - 44.0 % 03/15/2025 12:51 PM EDT [facility] Monocyte % 9.6 0.0 - 14.0 % 03/15/2025 12:51 PM EDT [facility] Eosinophil % 1.8 0.0 - 5.0 % 03/15/2025 12:51 PM EDT [facility] Basophil % 0.8 0.0 - 2.0 % 03/15/2025 12:51 PM EDT [facility] Neutrophil # 3.87 1.80 - 7.70 10*3/uL 03/15/2025 12:51 PM EDT [facility] Immature Grans # <0.03 0.00 - 0.03 10*3/uL 03/15/2025 12:51 PM EDT [facility] Lymphocyte # 2.50 1.00 - 4.75 10*3/uL 03/15/2025 12:51 PM EDT [facility] Monocyte # 0.70(H) 0.00 - 0.60 10*3/uL 03/15/2025 12:51 PM EDT [facility] Eosinophil # 0.10 0.00 - 0.80 10*3/uL 03/15/2025 12:51 PM EDT [facility] Basophil # 0.10 0.00 - 0.20 10*3/uL 03/15/2025 12:51 PM EDT [facility] nRBC % 0.0 0 - 0 /100 WBCs 03/15/2025 12:51 PM EDT [facility] nRBC # <0.01 0.00 - 0.13 10*3/uL 03/15/2025 12:51 PM EDT [facility] Blood Structure of peripheral vein / Unknown Venipuncture / Unknown 03/15/2025 10:28 AM EDT 03/15/2025 10:28 AM EDT us Mikala Brower NP LAB BLOOD ORDERABLES Final Res ult Performing Organization Address City/State/[facility] Co de Phone Number [facility] [address] [facility] [address] [place] [address], documented in this encounter Visit Diagnoses Diagnosis Health maintenance examination- Primary Unspecified general medical examination documented in this encounter Care Teams Needlemaker Relationship Specialty Start Date End Date Mikala Brower, [employer] [address] [place] [phone] PCP - General Family Medicine 05/04/24 documented as of this encounter
--- OUTSIDE RECORDS SUMMARY | 2025-06-08 11:09 | XMS_ITS | Clinical Summary ---
Author Organization [facility] Address [address] [place] [address] Care Team Providers Care Salvage Determiner Name Role Phone Mikala Brower NP Primary Care Provider [phone] Allergies Active Allergy Reactions Criticality Noted Date Comments Sulfa (Sulfonamide Antibiotics) Rash 11/04 Rash Medications propranolol LA (INDERAL LA) 60 mg capsule 3 Active cholecalciferol , vitamin D3, 5,000 unit tablet Take 1,000 Units by mouth daily. Active Vagifem 10 mcg tabletIndicatio ns:Postmenopaus al atrophic vaginitis Insert 1 tablet (10 mcg total) into the vagina 2 times a week. 24 tablet 3 4 Active calcium carbonate (TUMS) 200 mg calcium (500 mg) chewable tablet Chew and swallow 1 tablet by mouth once a day. Take 600 mg of calcium daily Active cyanocobalamin (VITAMIN B12) 500 mcg tablet Take 1 tablet (500 mcg total) by mouth once a day. 90 tablet 11 4 Active propranoloL (INDERAL) 10 mg tablet Take 1 tablet (10 mg total) by mouth 3 times a day as needed (tremors). Take propranolol immediate release 10 mg 3 times a day prn tremors, in addition to the propranolol LA 60 mg daily standing dose 30 tablet 11 4 Active atorvastatin (LIPITOR) 10 mg tablet SMARTSI Tablet(s) By Mouth Daily 4 Active ibuprofen (MOTRIN) 600 mg tablet 4 Active mupirocin (BACTROBAN) 2% ointment SMARTSIG:sparing ly Topical 3 Times Daily 5 Active methocarbamoL (ROBAXIN) 500 mg tablet Take 1 tablet (500 mg total) by mouth 3 times a day as needed for muscle spasms. 90 tablet 5 Active Active Problems Problem Noted Date Diagnosed Date Postmenopausal bleeding 08/24/2024 Assessment & Plan (08/24/2024 11:45 AM EST): 58-year-old 2 para 2 menopausal female using Vagifem for vaginal dryness. About 1 month ago, she had a small amount of vaginal spotting. This was associated with cramping and mild dysuria so she was unsure if bleeding was coming from the bladder or the vagina. Exam is normal today with mild degree of urethral prolapse. Clean-catch urinalysis with culture is ordered. Pelvic ultrasound is ordered and we reviewed that if ultrasound shows endometrium less than 5 mm, no further evaluation is needed unless she were to bleed again. If endometrium is measuring greater than 5 mm, she will need to return for an endometrial biopsy. Intention tremor 08/07/2024 Dysmetria 08/07/2024 Essential tremor 08/07/2024 Resting tremor 08/07/2024 B12 deficiency 08/07/2024 Atrophy of vagina 05/04/2024 Benign familial tremor 05/04/2024 Chronic lower back pain 05/04/2024 History of left foot drop 05/04/2024 Hyperlipidemia 05/04/2024 Myofascial muscle pain 05/04/2024 Neck and shoulder pain 05/04/2024 Osteopenia 05/04/2024 Sciatica 05/04/2024 Speech articulation disorder 05/04/2024 Vasomotor symptoms due to menopause 05/04/2024 Vitamin D deficiency 05/04/2024 Weakness of limb 05/04/2024 Heterogeneously dense tissue of both breasts on mammography 05/04/2024 Plantar fasciitis of left foot 04/12/2024 Kidney stones 10/02/2022 Lumbar radiculopathy 11/29/2018 Resolved Problems Problem Noted Date Diagnosed Date Resolved Date Abdominal pain of multiple sites 05/04/2024 05/04/[address] scan, colon 05/04/2024 082 05/2024 Acute pharyngitis 05/04/2024 05/04/2024 Hand pain 05/04/2024 05/04/2024 Encounters Date Type Department Care Team Description 05/25/2025 12:45 PM EDT Follow-Up [address] Physiatry Department [address] [place] [phone] Zhang Jones, 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); Lumbar radiculopathy 05/14/2025 Orders Only [facility] Site Department [address] [place] [phone] Joe Park NP 05/11/2025 3:41 PM EDT - 05/11/2025 11:59 PM EDT Hospital Encounter [facility] [address] [place] [id number] Pain Discharge Disposition: Home or Self Care () 05/11/2025 3:25 PM EDT Lab [facility] Department [address] [place] [phone] Abdominal pain, unspecified abdominal location (Primary Dx) 04/10/2025 1:14 PM EDT - 04/10/2025 11:59 PM EDT Hospital Encounter [facility] [address] [place] [phone] Screening mammogram for breast cancer Discharge Disposition: Home or Self Care () 04/06/2025 2:00 PM EDT Follow-Up [facility] [address] [place] [address] Paper Plate Machine Tender: Francesca Dubon PA Kidney stones (Primary Dx); History of recurrent urinary tract infection 03/23/2025 11:47 AM EDT - 03/23/2025 11:59 PM EDT Hospital Encounter [facility] [address] [place] [address] Kidney stones Discharge Disposition: Home or Self Care () 03/15/2025 10:25 AM EDT Lab [facility] Lab Department [address] [place] [address] Health maintenance examination 03/13/2025 Orders Only [facility] Site Department [address] [place] [address] Mikala Brower, JUAN ANTONIO Health maintenance examination (Primary Dx) from Last 3 Months Immunizations Immunization Administration Dates Next Due Covid-19, Pfizer, mRNA, [place] valent, PF, 30 mcg/0.3 mL dose, liam-sucrose (COMIRNATY)(for ages 12 and older) 03/31/2022 INFLUENZA, SPLIT VIRUS, TRIVALENT, PF 06/09/2017 ,05/26/2016 Influenza, Injectable, Quadrivalent, Preservativ e Free 07/22/2015 Influenza, Quadrivalent, Recombinant, Injectable , PF 06/06/2021 Influenza, Trivalent, MDV, Injectable 06/15/2014 Influenza, Unspecified 07/04/2010 Tetanus Toxoid, Reduced Diph theria Toxoid, and Acellular Pertussis Vaccine, Adsorbed 06/29/2022,06/15/2014 Tetanus and Diphtheria Toxoi ds, Adsorbed, Preservative Free (2 Lf of Tetanus Toxoid and 2 Lf of Diphtheria Toxoid) 01/25/2008 Family History Medical History Relation Name Comments Tremor Brother Blood Clots Father Stroke Maternal Grandmother Tremor Sister Brain cancer Neg Hx Parkinsonism Neg Hx Seizures Neg Hx Relation Name Status Comments Brother Father Maternal Grandmother Sister Social History Tobacco Use Types Packs/Day Years Used Date Smoking Tobacco: Never Smokeless Tobacco: Never Tobacco Cessation:Counseling Given: Not Answered Alcohol Use Standard Drinks/Week Comments Never 0 (1 standard drink = 0.6 oz pur e alcohol) Comments No Sex and Gender Information Value Date Recorded Sex Assigned at Female 10/14/2023 3:15 PM EST Legal Sex Female 4:38 AM EDT Gender Identity Not on file Sexual Orientation Not on file Last Filed Vital Signs Vital Sign Reading Time Taken Comments Blood Pressure 106/60 05/25/2025 12:35 PM EDT Pulse 68 05/25/2025 12:35 PM EDT Temperature 35.8 C (96.4 F) 05/25/2025 12:35 PM EDT Respiratory Rate 14 05/25/2025 12:35 PM EDT Oxygen Saturation 98% 05/25/2025 12:35 PM EDT Inhaled Oxygen Concentration - - Weight 59 kg (130 lb) 05/25/2025 12:35 PM EDT Height 157.5 cm (5' 2 ) 05/25/2025 12:35 PM EDT Body Mass Index 23.78 05/25/2025 12:35 PM EDT Plan of Treatment Upcoming Encounters Date Type Department Care Team (Late st Contact Info) Description 03/29/2026 12:00 PM EDT Appointment [facility] [address] [place] [address] 04/12/2026 1:30 PM EDT Follow-Up [facility] [address] [facility] [place] [address] Paper Plate Machine Tender: Francesca Dubon PA [address] [place] [id number] Health Maintenance Due Date Last Done Comments Cologuard 1965 FOBT / Fit Test 1965 HIV Screening 1965 Hepatitis C Screening 1965 Sigmoidoscopy 1965 HPV and Pap Smear 11/16/2007 11/15/2002 Pneumococcal Vaccine: 50+ Years (1 of 1 - PCV) 2014 Zoster Vaccines (1 of 2) 2014 Alcohol/Substance Use Screening 09/06/2024 Depression Screening and Follow-Up 09/06/2024 Social Drivers of Health Annual Screening 09/06/2024 COVID-19 Vaccine ( season) 2025 03/31/2022, 08/06/2021, 12/27/2020, Additional history exists Influenza Vaccine (#1) 2025 , 06/09/2017, 05/26/2016, Additional history exists Cervical Cancer Screening 04/28/2026 Pap Smear 04/28/2026 04/28/2023, 11/15/2002 Mammogram 04/10/2027 04/10/2025, 07/0 11/2023, 11/10/2022, Additional history exists DTaP,Tdap,and Td Vaccines (3 - Td or Tdap) 06/29/2032 06/29/2022, 06/15/2014, 01/25/2008 Colon Cancer Screening 04/29/2033 Colonoscopy 04/29/2033 04/29/2023 RSV Vaccine (60+ years old and patients) (1 - 1-dose 75+ series) 2039 Diabetes Screening Discontinued 05/11/2025, 0 03/15/2025, 03/15/2025, Additional history exists Hepatitis B Vaccines Aged Out No long er eligible based on patient's age to complete this topic Procedures * Due to [place] state law, this organization might not be sharing negative HIV tests. Procedure Name Priority Date/Time Associated Diagnosis Comments URINE CULTURE, ROUTINE Routine 4:26 PM EDT Stomachache XR ABDOMEN 1 VW Routine 05/11/2025 4:08 PM EDT Pain SEDIMENTATION RATE, AUTOMATED Routine 05/11/2025 3:39 PM EDT Abdominal pain, unspecified abdominal location COMPREHENSIVE METABOLIC PANEL Routine 05/11/2025 3:39 PM EDT Abdominal pain, unspecified abdominal location CBC AUTO DIFFERENTIAL Routine 05/11/2025 3:39 PM EDT Abdominal pain, unspecified abdominal location AYLIN BILATERAL SCREENING DIGITAL MAMMOGRAM WITH CHAZ Routine 04/10/2025 1:26 PM EDT Screening mammogram for breast cancer US KIDNEY AND BLADDER COMPLETE Routine 03/23/2025 12:11 PM EDT Kidney stones FERRITIN Routine 03/15/2025 10:28 AM EDT Health maintenance examination IRON SATURATION Routine 03/15/2025 10:28 AM EDT Health maintenance examination VITAMIN D, 25-HYDROXY, TOTAL, IMMUNOASSAY Routine 03/15/2025 10:28 AM EDT Health maintenance examination IRON, TIBC AND FERRITIN PANEL (5616) Routine 03/15/2025 10:28 AM EDT Health maintenance examination COMPREHENSIVE METABOLIC PANEL Routine 03/15/2025 10:28 AM EDT Health maintenance examination HEMOGLOBIN A1C Routine 03/15/2025 10:28 AM EDT Health maintenance examination LIPID PANEL Routine 03/15/2025 10:28 AM EDT Health maintenance examination T4, FREE Routine 03/15/2025 10:28 AM EDT Health maintenance examination TSH Routine 03/15/2025 10:28 AM EDT Health maintenance examination CBC AUTO DIFFERENTIAL Routine 03/15/2025 10:28 AM EDT Health maintenance examination HM COLONOSCOPY 04/29/2023 10:17 AM EDT PAP W/REFLEX HPV, CONVERSION Routine 11/15/2002 10:39 AM EST from Last 3 Months or Most Recently Relevant to Health Maintenance Results * Due to [place] state law, this organization might not be sharing negative HIV tests. * Urine Culture, Routine (05/11/2025 4:26 PM EDT) Urine Culture Gram positives; <10,000 CFU/mL found. No further workup is indicated. [place] MANUAL 05/13/2025 8:16 AM EDT [facility] Urine Urine specimen collection, clean catch / Unknown Non-Blood Collection / Unknown 05/11/2025 4:26 PM EDT 05/11/2025 4:26 PM EDT us Joe Park NP LAB MICROBIOLOGY - GENERAL ORD ERABLES Final Result [facility] [address] [facility] [address] [place] [address], [place] [phone] * X-Ray Abdomen 1 View (05/11/2025 4:08 PM EDT) Anatomical Region Laterality Modality Body Radiographic Yudy ging 05/12/2025 7:15 AM EDT Impressions 05/12/2025 7:16 AM EDT FINDINGS/IMPRESSION: Minor gas and stool in the colon. Otherwise negative. No free air. Trace DJD in the lower lumbar spine. If this radiology report contains a blank impression section, it is an incomplete radiology report. Please contact the interpreting radiologist or applicable radiology division as soon as possible to obtain the completed interpretation. Workstation ID: [id number] Narrative 05/12/2025 7:16 AM EDT EXAMINATION: XR ABDOMEN 1 VW INDICATION: R52 - I10 - Pain, unspecified COMPARISONS: None Resulting Agency Comment [id number] Procedure Note Gus Blair MD - 05/12/2025 EXAMINATION: XR ABDOMEN 1 VW INDICATION: R52 - I10 - Pain, unspecified COMPARISONS: None IMPRESSION: FINDINGS/IMPRESSION: Minor gas and stool in the colon. Otherwise negative. No free air. TraceDJD in the lower lumbar spine. If this radiology report contains a blank impression section, it is anincomplete radiology report. Please contact the interpreting radiologistor applicable radiology division as soon as possible to obtain thecompleted interpretation. Workstation ID: [id number] Joe Park NP IMG XR PROCEDURES Final Result * (ABNORMAL) CBC Auto Differential (05/11/2025 3:39 PM EDT) Only the most recent of2 resultswithin the time period is included. WBC 7.2 4.8 - 10.8 10*3/uL 05/11/2025 4:04 PM EDT [facility] RBC 4.82 4.20 - 5.40 10*6/uL 05/11/2025 4:04 PM EDT [facility] Hemoglobin 13.5 11.7 - 15.5 g/dL 05/11/2025 4:04 PM EDT [facility] Hematocrit 40.6 35.7 - 45.8 % 05/11/2025 4:04 PM EDT [facility] MCV 84.2 81.0 - 99.0 fL 05/11/2025 4:04 PM EDT [facility] MCH 28.0 26.0 - 34.0 pg 05/11/2025 4:04 PM EDT [facility] MCHC 33.3 31.0 - 36.0 g/dL 05/11/2025 4:04 PM EDT [facility] RDW 12.6 12.0 - 15.0 % 05/11/2025 4:04 PM EDT [facility] RDW Standard Deviation 39.0 36.4 - 46.3 fL 05/11/2025 4:04 PM EDT [facility] Platelets 214 140 - 440 10*3/uL 05/11/2025 4:04 PM EDT [facility] MPV 11.3 9.4 - 12.3 fL 05/11/2025 4:04 PM EDT [facility] Neutrophil % 48.4(L) 50.0 - 75.0 % 05/11/2025 4:04 PM EDT [facility] Immature Grans % 0.3 0.0 - 0.9 % 05/11/2025 4:04 PM EDT [facility] Lymphocyte % 38.9 20.0 - 44.0 % 05/11/2025 4:04 PM EDT [facility] Monocyte % 9.9 0.0 - 14.0 % 05/11/2025 4:04 PM EDT [facility] Eosinophil % 1.5 0.0 - 5.0 % 05/11/2025 4:04 PM EDT [facility] Basophil % 1.0 0.0 - 2.0 % 05/11/2025 4:04 PM EDT [facility] Neutrophil # 3.48 1.80 - 7.70 10*3/uL 05/11/2025 4:04 PM EDT [facility] Immature Grans # <0.03 0.00 - 0.03 10*3/uL 05/11/2025 4:04 PM EDT [facility] Lymphocyte # 2.80 1.00 - 4.75 10*3/uL 05/11/2025 4:04 PM EDT [facility] Monocyte # 0.70(H) 0.00 - 0.60 10*3/uL 05/11/2025 4:04 PM EDT [facility] Eosinophil # 0.10 0.00 - 0.80 10*3/uL 05/11/2025 4:04 PM EDT [facility] Basophil # 0.10 0.00 - 0.20 10*3/uL 05/11/2025 4:04 PM EDT [facility] nRBC % 0.0 0 - 0 /100 WBCs 05/11/2025 4:04 PM EDT [facility] nRBC # <0.01 0.00 - 0.13 10*3/uL 05/11/2025 4:04 PM EDT [facility] Blood Structure of peripheral vein / Unknown Venipuncture / Unknown 05/11/2025 3:39 PM EDT 05/11/2025 4:00 PM EDT us Joe Park DIRECTOR OF REHABILITATION AND WELLNESS LAB BLOOD ORDERABLES Final Res ult Performing Organization Address City/[facility]/ZIP Co de Phone Number [facility] [address] [address], [place] [phone] * Sedimentation Rate (05/11/2025 3:39 PM EDT) Sed Rate 3 0 - 29 mm/Hr 05/11/2025 4:29 PM EDT [facility] Blood Structure of peripheral vein / Unknown Venipuncture / Unknown 05/11/2025 3:39 PM EDT 05/11/2025 4:00 PM EDT Joe Park DIRECTOR OF REHABILITATION [facility]NESS LAB BLOOD ORDERABLES Final Res ult Performing Organization Address City/[facility]/ZIP Co de Phone Number [facility] [address] [address], [place] [phone] * (ABNORMAL) Comprehensive Metabolic Panel (05/11/2025 3:39 PM EDT) Only the most recent of2 resultswithin the time period is included. NA 139 136 - 145 mmol/L 05/11/2025 4:43 PM EDT [facility] K 4.0 3.5 - 5.1 mmol/L 05/11/2025 4:43 PM EDT [facility] Cl 101 98 - 109 mmol/L 05/11/2025 4:43 PM EDT [facility] CO2 26 22 - 32 mmol/L 05/11/2025 4:43 PM EDT [facility] Anion Gap 16 >=0 05/11/2025 4:43 PM EDT [facility] Glucose 91 60 - 99 mg/dL 05/11/2025 4:43 PM EDT [facility] Creatinine 0.67 0.50 - 1.12 mg/dL 05/11/2025 4:43 PM EDT [facility] Calcium 10.6(H) 8.4 - 10.4 mg/dL 05/11/2025 4:43 PM EDT [facility] Total Protein 7.6 6.6 - 8.7 g/dL 05/11/2025 4:43 PM EDT [facility] Albumin 4.5 3.5 - 5.0 g/dL 05/11/2025 4:43 PM EDT [facility] Bilirubin, Total 0.4 0.2 - 1.2 mg/dL 05/11/2025 4:43 PM EDT [facility] Alkaline Phosphatase 58 40 - 129 U/L 05/11/2025 4:43 PM EDT [facility] AST 26 0 - 33 U/L 05/11/2025 4:43 PM EDT [facility] ALT 24 <=33 U/L 05/11/2025 4:43 PM EDT [facility] BUN 12 8 - 23 mg/dL 05/11/2025 4:43 PM EDT [facility] eGFR >90 >=60 mL/min/1. 73m2 05/11/2025 4:43 PM EDT [facility] Comment:The estimated glomer ular filtration rate [...] Globulin, Total 3.1 2.1 - 4.2 g/dL 05/11/2025 4:43 PM EDT [facility] A/G Ratio 1.5 1.5 - 3.0 05/11/2025 4:43 PM EDT [facility] Blood Structure of peripheral vein / Unknown Venipuncture / Unknown 05/11/2025 3:39 PM EDT 05/11/2025 4:00 PM EDT us Joe Park DIRECTOR OF REHABILITATION AND [facility]LLNESS LAB BLOOD ORDERABLES Final Res ult [facility] [address] [address], * AYLIN Bilateral Screening Digital Mammogram With Chaz (04/10/2025 1:26 PM EDT) Anatomical Region Laterality Modality Breast Bilateral Mammography Narrative 04/23/2025 7:29 AM EDT Gabby Ro Exam Date: 04/10/[address] [facility] [address] [place], [place] [address] EXAMINATION AYLIN Bilateral Screening Digital Mammogram With Chaz. INDICATION Gabby Ro is a 59 y.o. female and is seen for: screening. CC and MLO views were obtained. FDA approved [employer] AI (artificial intelligence) software and R2 CAD were used as a concurrent reading aid in the interpretation of this study. COMPARISON Relevant prior exams in PACS. Bilateral Breast Findings: There are scattered areas of fibroglandular density. No significant masses, calcifications or other abnormalities are seen. No significant interval change. IMPRESSION No evidence of malignancy. BI-RADS ATLAS category (left): 1 - Negative BI-RADS ATLAS category (right): 2 - Benign MANAGEMENT Routine Screening Mammogram in 1 Year is recommended for bilateral. The patient was entered into a reminder system with a target date for their next mammogram. The patient s lifetime risk for breast cancer was calculated as: Tyrer-Cuzick: 4.64%. For high-risk women (life-time risk greater than 20%), regardless of breast density, supplemental screening with annual breast MRI is recommended in addition to annual mammography, ideally staggered at 6-month intervals. Women with dense breast tissue and lifetime risk less than 20% may also benefit from supplemental screening with breast MRI (App[employer] order M RI BREAST BILATERAL SCREENING W WO CONTRAST ) or automated breast ultrasound (App[employer] order A BUS ) depending on risk factors. https://acsearch.acr.org/docs/4955014/Narrative/ TC score is not calculated for women with personal history of breast cancer or if age >80 years. If this radiology report contains a blank impression section, it is an incomplete radiology report. Please contact the interpreting radiologist or applicable radiology division as soon as possible to obtain the completed interpretation. Binta Cifuentes MD Resulting Agency Comment [id number] us Mikala Brower NP IMG BI PROCEDURES Final Result * US Kidney Complete and Bladder (03/23/2025 12:11 PM EDT) Anatomical Region Laterality Modality Body N/A Ultrasound 03/23/2025 12:4 6 PM EDT Impressions 03/23/2025 12:50 PM EDT No shadowing stone or hydronephrosis on either side. Post void residual of 54 mL in the bladder, with no shadowing bladder stone.. If this radiology report contains a blank impression section, it is an incomplete radiology report. Please contact the interpreting radiologist or applicable radiology division as soon as possible to obtain the completed interpretation. Workstation ID: [id number] Narrative 03/23/2025 12:50 PM EDT EXAMINATION: Ultrasound kidneys and bladder. INDICATION: History of kidney stones TECHNIQUE: Ultrasound evaluation of the kidneys and bladder. Multiple grayscale and color Doppler images were obtained. COMPARISON: 03/06/2024, abdomen CT report 03/25/2023 FINDINGS: RIGHT KIDNEY: The right kidney measures 12.6 cm. The parenchyma is within normal limits. There is no hydronephrosis. The prominent ovoid fluid space at the medial aspect of the kidney is considered most typical for an extrarenal pelvis, unchanged compared to the previous study. No shadowing stone or perinephric urinoma. LEFT KIDNEY: The left kidney measures 12.6 cm. The parenchyma is within normal limits. There is no shadowing stone or hydronephrosis. No perinephric urinoma BLADDER: The bladder is unremarkable in sonographic appearance. Prevoid, the bladder volume is 393 mL. Post void, the residual bladder volume is 54 mL. No shadowing stone identified in the bladder. Resulting Agency Comment [id number] Procedure Note Shun Park MD - 03/23/2025 EXAMINATION: Ultrasound kidneys and bladder. INDICATION: History of kidney stones TECHNIQUE: Ultrasound evaluation of the kidneys and bladder. Multiplegrayscale and color Doppler images were obtained. COMPARISON: 03/06/2024, abdomen CT report 03/25/2023 FINDINGS: RIGHT KIDNEY: The right kidney measures 12.6 cm. The parenchyma is withinnormal limits. There is no hydronephrosis. The prominent ovoid fluid spaceat the medial aspect of the kidney is considered most typical for anextrarenal pelvis, unchanged compared to the previous study. No shadowingstone or perinephric urinoma. LEFT KIDNEY: The left kidney measures 12.6 cm. The parenchyma is withinnormal limits. There is no shadowing stone or hydronephrosis. Noperinephric urinoma BLADDER: The bladder is unremarkable in sonographic appearance. Prevoid,the bladder volume is 393 mL. Post void, the residual bladder volume is 54mL. No shadowing stone identified in the bladder. IMPRESSION: No shadowing stone or hydronephrosis on either side. Post void residual of 54 mL in the bladder, with no shadowing bladderstone.. If this radiology report contains a blank impression section, it is anincomplete radiology report. Please contact the interpreting radiologistor applicable radiology division as soon as possible to obtain thecompleted interpretation. Workstation ID: [id number] Marybel MCNULTY IMG US PROCEDURES Final Result * Iron Saturation (03/15/2025 10:28 AM EDT) Iron 118 37 - 145 ug/dL 03/15/2025 1:23 PM EDT [facility] Unsaturated Iron Binding 209.0 112.0 - 347.0 ug/dL 03/15/2025 1:23 PM EDT [facility] Transferrin Saturation 36 15 - 50 % 03/15/2025 1:23 PM EDT [facility] Blood Structure of peripheral vein / Unknown Venipuncture / Unknown 03/15/2025 10:28 AM EDT 03/15/2025 10:28 AM EDT Mikala Brower NP LAB BLOOD ORDERABLES Final Res ult Performing Organization Address [facility]/ZIP Co de Phone Number [facility] [address] [place] [id number], [place] [phone] * Vitamin D, 25-Hydroxy, Total, Immunoassay (03/15/2025 10:28 AM EDT) Vitamin D 25-OH 45.60 30.00 - 80.00 ng/mL 03/15/2025 1:35 PM EDT [facility] Blood Structure of peripheral vein / Unknown Venipuncture / Unknown 03/15/2025 10:28 AM EDT 03/15/2025 10:28 AM EDT Mikala Brower NP LAB BLOOD ORDERABLES Final Res ult Performing Organization Address City/[facility]/ZIP Co de Phone Number [facility] [address] [address], [place] [phone] * TSH (03/15/2025 10:28 AM EDT) TSH 2.260 0.270 - 4.200 uIU/mL 03/15/2025 1:23 PM EDT [facility] Comment: Females: 1st trimester 0.150-4.000 IU/mL 2nd trimester 0.310-4.170 IU/mL 3rd trimester 0.380-4.150 IU/mL Blood Structure of peripheral vein / Unknown Venipuncture / Unknown 03/15/2025 10:28 AM EDT 03/15/2025 10:28 AM EDT us Mikala Brower NP LAB BLOOD ORDERABLES Final Res ult [facility] [address] [facility] [address] [place] [address], [place] [phone] * T4, Free (03/15/2025 10:28 AM EDT) Free T4 1.30 0.80 - 1.80 ng/dL 03/15/2025 1:23 PM EDT [facility] Comment: Females: (ng/dL) First Trimester 0.95-1.58 [...] AM EDT 03/15/2025 10:28 AM EDT us Lamoy P. Toban DIRECTOR OF REHABILITATION AND WELLNESS LAB BLOOD ORDERABLES Final Res ult Performing Organization Address City/[facility]/ZIP Co de Phone Number [facility] [address] [address], [place] [phone] * (ABNORMAL) Hemoglobin A1c (03/15/2025 10:28 AM EDT) Hemoglobin A1c 5.8(H) 4.0 - 5.7 % 03/15/2025 1:21 PM EDT [facility] Estimated Average Glucose 120 mg/dL 03/15/2025 1:21 PM EDT [facility] Blood Structure of peripheral vein / Unknown Venipuncture / Unknown 03/15/2025 10:28 AM EDT 03/15/2025 10:28 AM EDT us Mikala Brower DIRECTOR OF REHABILITATION AND WELLNESS LAB BLOOD ORDERABLES Final Res ult Performing Organization Address [facility] Co de Phone Number [facility] [address] [address], [place] [phone] * Ferritin (03/15/2025 10:28 AM EDT) Ferritin 112.0 15.0 - 150.0 ng/mL 03/15/2025 1:23 PM EDT [facility] Blood Structure of peripheral vein / Unknown Venipuncture / Unknown 03/15/2025 10:28 AM EDT 03/15/2025 10:28 AM EDT us Mikala Brower DIRECTOR OF REHABILITATION AND WELLNESS LAB BLOOD ORDERABLES Final Res ult Performing Organization Address [facility]/ZIP Co de Phone Number [facility] [address] [address], [place] [phone] * Lipid panel (03/15/2025 10:28 AM EDT) Cholesterol 197 mg/dL 03/15/2025 1:23 PM EDT [facility] Comment: DESIRABLE: <200 mg/dL BORDERLINE HIGH: 200-239 mg/dL HIGH: >239 mg/dL Triglycerides 128 mg/dL 03/15/2025 1:23 PM EDT [facility] Comment: NORMAL: <150 mg/dL BORDERLINE HIGH: 150-199 mg/dL HIGH: 200-499 mg/dL VERY HIGH >499 mg/dL Cholesterol, HDL 48 mg/dL 03/15/20 1:23 PM EDT [facility] Comment: DESIRABLE: >60 mg/dL BORDERLINE: 40-59 mg/dL UNDESIRABLE: <40 mg/dL LDL Cholesterol 123 mg/dL 1:23 PM EDT [facility] Comment: OPTIMAL: <100 mg/dL NEAR OPTIMAL: <130 mg/dL BORDERLINE HIGH: 130-159 mg/dL HIGH: 160-189 mg/dL VERY HIGH: >189 mg/dL VLDL 25.6 mg/dL 03/15/2025 1:23 PM EDT [facility] Cholesterol/HDL Ratio 4.1 03/15/2025 1:23 PM EDT [facility] Blood Structure of peripheral vein / Unknown Venipuncture / Unknown 03/15/2025 10:28 AM EDT 03/15/2025 10:28 AM EDT us Mikala Brower DIRECTOR OF REHABILITATION AND WELLNESS LAB BLOOD ORDERABLES Final Res ult [facility] [address] [facility] [address] [place] [address], [place] [phone] * Colonoscopy (04/29/2023 10:17 AM EDT) us Onbase Scan [facility] Final Resu lt * Pap w/Reflex HPV (11/15/2002 10:39 AM EST) Path Procedure TPG ([id number]) 1 Edited by: [id number] - [id number] [facility] - [facility] Specimen Labeled As: 1 CERVICAL/ENDOCERVI CHARLY CYTO MATERIAL - Edited by: [id number] - [id number] [facility] ANATOMIC PATHOLOG[facility] - [facility] Diagnosis THINPREP PAP TEST ADEQUACY: Satisfactory for evaluation INTERPRETATION: Negative for Intraepithelial Lesion or Malignancy REMARKS/RECOMMENDA TIONS: This is the result of a screening test with an inherent, but low, probability of false negative interpretation. Additional studies may be indicated in spite of a normal Pap test result. Edited by: [id number] - [address] [facility]ATOMIC PATHOLOGY - [facility] Gynecologic Clinical Data Specimen source:, THINPREP (CERVICAL AND ENDOCERVICAL) [facility]ATOMIC PATHOLOGY - [facility] Gynecologic Clinical Data First date of LMP:, 10/16/02 [facility] ANATOMIC PATHOLOGY - [facility] Marker 1 Sean HUFF [facility] ANATOMIC PATHOLOGY - [facility] Marker 2 NILM,NILM [facility] ANATOMIC PATHOLOGY - [facility] Cc Results To LORENZO Mariano OBG [id number] [facility]ATOM[facility] PATHOLOGY - [facility] Signature REPORT SIGNED: RICH GREER 11/21/02 [facility]ATOMIC PATHOLOGY - [facility] Sign Out Audit RICH GREER [id number] FINAL NEW -CG [id number] [facility] ANATOMIC PATHOLOGY - [facility] Cytology / Unknown 3 10:39 AM EST 11/16/2002 10:39 AM EST us Sancho Stauffer MD LAB HISTORICAL RESULTS Final Res ult [facility]ATOMIC PATHOLOGY - [facility] [address] [place] [address], from Last 3 Months or Most Recently Relevant to Health Maintenance Insurance [employer] OUT OF STATE PPO Care Teams Salvage Determiner Relationship Specialty Start Date End Date Mikala Brower, DIRECTOR OF REHABILITATION AND WELLNESS [address] [facility] [address] [place] [address] PCP - General Family Medicine 05/04/24
--- OUTSIDE RECORDS SUMMARY | 2025-06-08 11:09 | XMS_ITS | Clinical Summary ---
Author Organization [facility] Address [address] [place] [address] Care Team Providers Care Clinical Study Manager Name Role Phone Sancho Duran Primary Care Provider [phone] Allergies Active Allergy Reactions Criticality Noted Date Comments Sulfa Antibiotics Maculopapular Rash 03/13/2022 Medications * This document contains information received from the source organization and may not represent a complete record from that organization. Propranolol HCl (INDERAL) 60 MG tablet Take 60 mg by mouth 3 (three) times a day Active Atorvastatin Calcium (LIPITOR) 10 MG tablet Take 10 mg by mouth 1 (one) time each day Active Estradiol-Sohan orgestrel (Climara Pro) 0.045-0.015 MG/DAY Place 1 patch on the skin 1 (one) time per week Patient states using 1/4 size of patch weekly Active Tamsulosin HCl (FLOMAX) 0.4 MG Cap Take 0.4 mg by mouth 1 (one) time each day Active Vitamin D (VITAMIN D-3) 50 MCG (2000 UT) capsule Take 2,000 Units by mouth 1 (one) time each day Active Immunizations Immunization Administration Dates Next Due COVID-19, mRNA (Pfizer Pre F all 2022) Monovalent, 30 mcg/0.3 ml 08/06/2021,12/27/2020,12/06/2020 Influenza,recombinant,quad,i njectable,Prsrv Fr 06/06/2021 Tdap 06/29/2022 influenza,seasonal,trivalent ,PF (Fluzone, Fluarix, Flulaval) 06/09/2017,05/26/2016 Social History Tobacco Use Types Packs/Day Years Used Date Smoking Tobacco: Never Smokeless Tobacco: Never Tobacco Cessation:Counseling Given: Not Answered Intimate Partner Violence Answer Date R ecorded Fear of Current or Ex-Partner Not on file Emotionally Abused Not on file 04/27/2023 Physically Abused Not on file 04/27/2023 Sexually Abused Not on file 04/27/2023 Feel Safe at Home Not on file 04/27/2023 Comments Unknown Sex and Gender Information Value Date Recorded Sex Assigned at Not on file Legal Sex Female 8:08 PM EDT Gender Identity Not on file Sexual Orientation Not on file Last Filed Vital Signs Vital Sign Reading Time Taken Comments Blood Pressure 103/69 03/31/2022 1:57 PM EDT Pulse 73 03/31/2022 1:57 PM EDT Temperature 36.8 C (98.3 F) 03/31/2022 1:57 PM EDT Respiratory Rate - - Oxygen Saturation - - Inhaled Oxygen Concentration - - Weight 62.6 kg (138 lb) 03/31/2022 1:57 PM EDT Height 157.5 cm (5' 2 ) 03/31/2022 1:57 PM EDT Body Mass Index 25.24 03/31/2022 1:57 PM EDT Plan of Treatment Health Maintenance Due Date Last Done Comments Hepatitis C Screening 1965 Pap Smear 1980 Colon Cancer Screening 2009 Pneumococcal 50+ years (1 of 1 - PCV) 2014 Zoster (Shingrix) (1 of 2) 2014 Mammogram/Breast Imaging 11/11/2023 11/10/2022, 03/06 COVID-19 Vaccine ( season) 2025 03/31/2022, 08/06/2021, 12/27/2020, Additional history exists Influenza (#1) 2025 06/06/2021, 10/0 12/2016, 05/26/2016 DTaP/Tdap/Td (2 - Td or Tdap) 06/29/2032 06/29/2022 RSV (1 - 1-dose 75+ series) 2039 LDL Cholesterol Discontinued 02/21/2024, 05/2 05/2023, 02/26/2022, Additional history exists HPV Vaccine (No Doses Required) Completed Hep A Aged Out No longer eligi ble based on patient's age to complete this topic Hep B Aged Out No longer eligi ble based on patient's age to complete this topic Hib Aged Out No longer eligi ble based on patient's age to complete this topic Meningococcal ACWY Aged Out No longer eligible based on patient's age to complete this topic Zoster (Zostavax) Discontinued Procedures * Due to [place] [employer] law, this organization might not be sharing negative HIV tests. Procedure Name Priority Date/Time Associated Diagnosis Comments LIPID PANEL Routine 02/21/2024 8:30 AM EDT DIGITAL SCREENING MAMMO Routine 11/10/2022 11:58 AM EST from Last 3 Months or Most Recently Relevant to Health Maintenance Results * Due to [place] [employer] law, this organization might not be sharing negative HIV tests. * LIPID PANEL (02/21/2024 8:30 AM EDT) Cholesterol 181 mg/dL [facility] Comment: DESIRABLE: <200 mg/dL BORDERLINE HIGH: 200-239 mg/dL HIGH: >239 mg/dL Triglyceride 102 mg/dL [facility] Comment: NORMAL: <150 mg/dL BORDERLINE HIGH: 150-199 mg/dL HIGH: 200-499 mg/dL VERY HIGH >499 mg/dL HDL Cholesterol 47 mg/dL [facility] Comment: DESIRABLE: >60 mg/dL BORDERLINE: 40-59 mg/dL UNDESIRABLE: <40 mg/dL Cholesterol.in LDL 114 mg/dL [facility] Comment: OPTIMAL: <100 mg/dL NEAR OPTIMAL: <130 mg/dL BORDERLINE HIGH: 130-159 mg/dL HIGH: 160-189 mg/dL VERY HIGH: >189 mg/dL VLDL Cholesterol 20.4 mg/dL [facility] CHOL/HDL Ratio 3.9 [facility] 02/21/2024 8:30 AM EDT us Anthony [facility] Final Re sult [facility] [address] [place] [id number] * DIGITAL SCREENING MAMMO (11/10/2022 11:58 AM EST) [facility] RADIOLOGY REPORT DEPARTMENT OF RADIOLOGY -- Patient: LROY RO Unit #: [id number] Ordering MD: ANTHONY CUBA NP : 1965 Procedure: Digital Mammo Screen Age: 57 Location: MAMMO Exam Date: 11/10/22 Status: [facility] Room/Bed: Primary MD: ANTHONY CUBA NP Patient Order: [id number] Additional Copy: ANTHONY CUBA NP --------- #[id number] - [id number] BILATERAL DIGITAL TOMOSYNTHESIS SCREENING MAMMOGRAM WITH CAD: 11/10/2022 CLINICAL: Routine. Digital 2D mammogram, synthesized 2D views and 3D Tomosynthesis views were obtained. Current study was also evaluated with a Computer Aided Detection (CAD) system. Comparison is made to prior exams. The breasts are heterogeneously dense, which may obscure small masses. Stable architectural distortion in the upper, outer quadrant of the right breast middle depth with associated biopsy clip and microcalcification s. Stable circumscribed mass in the lower, central left breast middle depth. No significant masses, calcifications, or other findings are seen in either breast. IMPRESSION: BENIGN There is no mammographic evidence of malignancy. A 1 year screening mammogram is recommended. This exam was interpreted at [facility]. POI: [facility]. Electronically signed by: Shaista Alamo M.D. js/:11/19/2022 11:57:24 letter sent: A-2 Normal Benign Mammogram BI-RADS: 2 Benign [facility] RAD Anatomical Region Laterality Modality Other 11/10/2022 11:5 8 AM EST Narrative 11/19/2022 1:58 PM EDT Reason for Study/History: Routine. TEST(S) PROCESSED BY MARTHA BOSE Anthony [facility] Final Result from Last 3 Months or Most Recently Relevant to Health Maintenance Insurance [facility] FEE FOR SERVICE PPO Care Teams Clinical Study Manager Relationship Specialty Start Date End Date Sancho Duran [address] [place] [phone] PCP - General Family Medicine 03/13/22
--- OUTSIDE RECORDS SUMMARY | 2025-06-08 11:09 | XMS_ITS | Encounter Summary ---
Author Organization [facility] Address [address] [place] [address] Care Team Providers Care Electrician Master Name Role Phone Sancho Duran Primary Care Provider [phone] Encounter Details Date Type Department Care Team (Late st Contact Info) Description 07/08/2022 Orders Only [facility] Urology [address] [facility] [address] [place] [address] rTisten Blair MD [facility] [address] [facility] [address] [place] [address] Social History Tobacco Use Types Packs/Day Years [...] of this encounter Procedures * Due to [place] law, this organization might not be sharing negative HIV tests. Procedure Name Priority Date/Time Associated Diagnosis Comments URINALYSIS, COMPLETE INCLUDES DIPSTICK AND MICROSCOPIC Routine 07/08/2022 12:57 PM EDT Microscopic hematuria documented in this encounter Results * Due to [place] [employer] law, this organization might not be sharing negative HIV tests. * (ABNORMAL) URINALYSIS, COMPLETE INCLUDES DIPSTICK AND MICROSCOPIC (07/08/2022 12:57 PM EDT) Color (Urine) YELLOW YELLOW [facility] Appearance (Urine) CLOUDY(A) CLEAR [facility] Specific gravity (Urine) 1.021 1.001 - 1.035 [facility] pH (Urine) 6.0 5.0 - 8.0 [facility] Glucose (Urine) NEGATIVE NEGATIVE [facility] Bilirubin (Urine) NEGATIVE NEGATIVE [facility] Ketones (Urine) NEGATIVE NEGATIVE [facility] Hemoglobin (Urine) NEGATIVE NEGATIVE [facility] Protein (Urine) NEGATIVE NEGATIVE [facility] Nitrite (Urine) NEGATIVE NEGATIVE [facility] Leukocyte esterase (Urine) 1+(A) NEGATIVE [facility] WBC (Urine) 6-10(A) < OR = 5 /HPF [facility] RBC (Urine Sed) 0-2 < OR = 2 /HPF [facility] Epithelial cells.squamous (Urine sed) 0-5 < OR = 5 /HPF [facility] Bacteria (Urine) MODERATE(A) NONE SEEN /HPF [facility] Calcium oxalate crystals (Urine sed) MANY(A) NONE OR FEW /HPF [facility] Hyaline casts (Urine sed) NONE SEEN NONE SEEN /LPF [facility] Service comment 01 FEW MUCOUS THREADS [facility] 07/08/2022 12:5 7 PM EDT 07/09/2022 12:24 AM EDT Narrative Resulting Agency Comment [id number] us Tristen Blair MD LAB SAME DAY RESULT Final Resu lt [facility] [address] [place] [address] documented in this encounter Visit Diagnoses Diagnosis Microscopic hematuria documented in this encounter Care Teams Electrician Master Relationship Specialty Start Date End Date Sancho Duran [address] [address] PCP - General Family Medicine 03/13/22 documented as of this encounter
== END 2025-06-08 10:47 | disposition home or self-care (01) ==
LOC: HO.HNS 10:18
PROVIDERS: Referring Provider Physical Medicine & Rehabilitation; Visit Provider Physician Assistant
DX: M51.26 Other intervertebral disc displacement, lumbar region (principal)
CPT/HCPCS: 99204